=== PATIENT | female | born 1970 | race Caucasian/White ===

== ENCOUNTER 2017-11-25 23:49 | Emergency (ER) | payer OTHER ==
[2010-10-23 18:19] VITALS: BMI 29.2
== END 2017-11-26 01:15 | disposition home or self-care (01) ==
LOC: D.ER 23:49
DX: S90.32XA Contusion of left foot, initial encounter (principal); W20.8XXA Other cause of strike by thrown, projected or falling object, initial encounter; Y93.89 Activity, other specified; Y92.019 Unspecified place in single-family (private) house as the place of occurrence of the external cause; D47.Z2 Castleman disease; I10 Essential (primary) hypertension